=== PATIENT | female | born 1960 | race Caucasian/White ===

== ENCOUNTER → 2017-12-31 13:54 | Outpatient (POV) | payer OTHER, SELFPAY | PROVIDERS: PCP Family Medicine; Visit Provider Internal Medicine | DX: Z00.00 Encounter for general adult medical examination without abnormal findings (principal) ==

== ENCOUNTER → 2018-01-01 13:12 | Outpatient (CLI) | payer OTHER, SELFPAY ==
--- NOTE | 2018-01-01 13:21 | US_ITS ---
US thyroid HISTORY: Follow-up nodules ITS.REASON: GOITER ORDERING PHYSICIAN: Jose Roberto Bains MD PATIENT AGE: 57 years COMPARISON: 07/04/2017 FINDINGS: Right lobe: 4.4 x 1 x 1.9 cm Nodule A upper pole: Mixed echogenicity 5 mm unchanged Nodule B upper pole mixed echogenicity 3 mm unchanged. Nodules C mid pole mixed echogenicity at 1 cm unchanged Nodule D mid pole slightly hypoechoic 5 mm unchanged Nodule E mid pole mixed echogenicity 8 mm unchanged Nodule F mid pole near the isthmus at 7 x 3 mm unchanged Left lobe: 4.1 x 1.3 x 1.4 cm Nodule A a cystic upper pole at 3 mm unchanged Nodule B mixed cystic and solid upper pole at 4 mm x 5 mm unchanged Nodule C 10 x 4 mm mid polar area unchanged Nodule D lower pole 5 mm which is mixed unchanged No new nodules evident. IMPRESSION: No change multinodular goiter
== END ==
PROVIDERS: PCP Family Medicine; Visit Provider Otolaryngology
DX: E04.9 Nontoxic goiter, unspecified (principal)
CPT/HCPCS: 76536

== ENCOUNTER → 2018-01-22 14:24 | Outpatient (CLI) | payer OTHER, SELFPAY ==
--- NOTE | 2018-01-22 14:37 | XR_ITS ---
XR chest 2V HISTORY: Cough ITS.REASON: BRONCHITIS ORDERING PHYSICIAN: Sarai Mcnair PATIENT AGE: 58 years COMPARISON: None available FINDINGS: The cardiomediastinal silhouette and pulmonary vascularity are within normal limits. The lungs are clear without infiltrates, suspicious nodules, or pleural effusions. There is a calcified granuloma in the right middle lobe. No acute bony abnormalities. IMPRESSION: No change with no acute finding
== END ==
PROVIDERS: PCP Family Medicine; Visit Provider Nurse Practitioner Family
DX: J40 Bronchitis, not specified as acute or chronic (principal)
CPT/HCPCS: 71046

== ENCOUNTER → 2018-06-03 09:13 | Outpatient (CLI) | payer OTHER, SELFPAY ==
--- NOTE | 2018-06-03 09:15 | MM_ITS ---
MM Dig screening mamm BI w/CAD CAD Screening COMPARISON: Digital mammograms with CAD 08/03/2015 and 10/03/2016 INDICATION: There is no personal or family history of breast cancer TECHNIQUE: Standard CC and MLO images were obtained. R2 CAD reviewed. FINDINGS: Moderate fibroglandular densities are seen in the central portions of both breasts. There is a stable nodular density just deep to the nipple left breast. There is no suspicious lesion and no suspicious microcalcifications. IMPRESSION: Stable exam no suspicious lesion seen recommend yearly follow-up BI-RADS Category: 2 Benign Finding(s) RECOMMENDED FOLLOW-UP: 1YR - 1 YEAR FOLLOW-UP (A letter has been sent to the patient regarding results of the study.)
== END ==
PROVIDERS: PCP Family Medicine; Visit Provider Obstetrics & Gynecology Gynecology
DX: Z12.31 Encounter for screening mammogram for malignant neoplasm of breast (principal)
CPT/HCPCS: 77067

== ENCOUNTER → 2019-01-15 13:49 | Outpatient (CLI) | payer OTHER, SELFPAY ==
[2019-01-15 15:40] LABS: Free T4 (Free Thyroxine) 0.87 ng/dl (0.76-1.46); Thyroid Stimulating Hormone 0.74 uIU/ml (0.358-3.740)
== END ==
PROVIDERS: Visit Provider Otolaryngology
DX: E04.9 Nontoxic goiter, unspecified (principal)
CPT/HCPCS: 36415; 84439; 84443

== ENCOUNTER → 2019-01-22 14:36 | Outpatient (CLI) | payer OTHER, SELFPAY ==
--- NOTE | 2019-01-22 14:43 | US_ITS ---
US thyroid HISTORY: Multinodular goiter follow-up thyroid nodules ITS.REASON: goiter ORDERING PHYSICIAN: Jose Roberto Bains MD PATIENT AGE: 59 years Comparison: 01/01/2018 FINDINGS: The right lobe is 4.2 x 1.2 x 2 cm. There are multiple nodules in the right lobe the thyroid gland once again noted. At least 7 nodules are present. The largest nodules are in the mid polar region at 9 mm unchanged and nodule is also present in the lower pole at 9 mm unchanged The left lobe is 4.1 x 1.0 x 1.4 cm and also contains multiple nodules. The largest nodules in the mid polar region at 8 mm. No new nodules are apparent. IMPRESSION: Stable bilateral subcentimeter thyroid nodules. Low level of suspicion for malignancy
== END ==
PROVIDERS: PCP Family Medicine; Visit Provider Otolaryngology
DX: E04.9 Nontoxic goiter, unspecified (principal)
CPT/HCPCS: 76536